=== PATIENT | female | born 1995 | race African-American/Black ===

== ENCOUNTER 2017-06-27 22:42 | Emergency (ER) | payer OTHER ==
[~2017-06-27] VITALS: Ht 167.6 cm; Wt 61.2 kg
[2017-06-27 23:00] VITALS: BP 114/64
--- NOTE | 2017-06-27 23:57 | PHYS DOC ---
Past Medical History Past Medical History: No Pertinent History Past Surgical History: No Surgical History Alcohol Use: Rarely Drug Use: None Adult General Chief Complaint Chief Complaint: TOE PROBLEM HPI HPI Patient is a 22 year old female who presents complaining of discoloration underneath her right great toe nail that she noted 2 months ago. Patient denies any known injury. She states today the right great toe was painful. She states the discoloration appears to be growing out. Review of Systems Review of Systems Constitutional: Denies fever or chills [] Musculoskeletal: Discoloration underneath the right great toenail Integument: Denies rash or skin lesions [] Neurologic: Denies headache, focal weakness or sensory changes [] All other systems were reviewed and found to be within normal limits, except as documented in this note. Allergies Allergies Allergies Coded Allergies Type Severity Reaction Last Updated Verified No Known Drug Allergies 06/27/17 No Physical Exam Physical Exam Constitutional: Well developed, well nourished, no acute distress, non-toxic appearance. [] Skin: Warm, dry, small subungual hematoma is noted on the right great mid toenail. The toenail appears to be growing out, there is a new nail underneath this area. No signs of infection to the area. Neurovascular exam is intact to the toe. Back: No tenderness, no CVA tenderness. [] Extremities: No tenderness, no cyanosis, no clubbing, ROM intact, no edema. [] Neurologic: Alert and oriented X 3, normal motor function, normal sensory function, no focal deficits noted. [] Psychologic: Affect normal, judgement normal, mood normal. [] Current Patient Data Vital Signs Vital Signs Date Time Temp Pulse Resp B/P (MAP) Pulse Ox O2 Delivery O2 Flow Rate FiO2 06/27/17 23:00 98.4 78 16 98 Room Air 98.4 EKG EKG [] Radiology/Procedures Radiology/Procedures [] Course & Med Decision Making Course & Med Decision Making Pertinent Labs and Imaging studies reviewed. (See chart for details) Patient has sublingual hematoma to the right great toe that she's had for the last 2 months. Denies any known injury. There is a new toenail growing underneath the old nail. Informed patient the new nail will push the old nail out. Instructed her to take Tylenol/ Motrin for pain. Instructed her to follow- up with her own doctor in 1-2 weeks as needed. Whitney Disclaimer Dragon Disclaimer This electronic medical record was generated, in whole or in part, using a voice recognition dictation system. Departure Departure Impression: Primary Impression: Subungual hematoma Disposition: 01 HOME, SELF-CARE Condition: STABLE Referrals: UNKNOWN PCP NAME (PCP) Follow-up with your doctor in 1-2 weeks as needed Patient Instructions: Subungual Hematoma Additional Instructions: You were seen for sublingual hematoma to your right great toe. This appears to be an old hematoma which is growing out. A new nail is growing underneath this area. The new nail looks normal. Take Tylenol or Motrin as needed for pain. Follow-up with your doctor in 1-2 weeks. TA GONZALEZ [employer] Jun 27, 2017 23:57
== END 2017-06-28 00:14 | disposition home or self-care (01) ==
LOC: ER 22:42
DX: S90.111A Contusion of right great toe without damage to nail, initial encounter (principal); X58.XXXA Exposure to other specified factors, initial encounter; Y93.89 Activity, other specified; Y99.8 Other external cause status; Y92.89 Other specified places as the place of occurrence of the external cause
CPT/HCPCS: 99281